=== PATIENT | male | born 1975 | race Caucasian/White ===

== ENCOUNTER → 2024-01-31 11:05 | Outpatient (CLI) | payer OTHER, SELFPAY ==
[2024-01-31 20:48] LABS: Alanine Aminotransferase 39 IU/L (<50); Albumin Globulin Ratio 1.3 (1.0-2.8); Alkaline Phosphatase 58 U/L (38-126); Aspartate Aminotransferase 64 IU/L (17-59); BUN Creatinine Ratio 16.7 (6-22); Bilirubin Total 1.1 mg/dL (0.2-1.3); Blood Urea Nitrogen 17 mg/dL (9-20); Calcium 9.2 mg/dL (8.4-10.2); Carbon Dioxide 26 mmol/L (22-32); Chloride 108 mmol/L (98-107); Cholesterol 197 mg/dL (140-199); Estimated Glomerular Filt Rate > 60 mL/min (>60); Glucose 93 mg/dL (70-100); HDL Cholesterol 42 mg/dL (40-60); HEMOLYSIS 33 (0-50); LDL Cholesterol Calculated 140 mg/dL (<100); Sodium 139 mmol/L (137-145); Triglycerides 75 mg/dL (35-150)
[2024-01-31 20:51] LABS: Hematocrit 44.8 % (41-53); Hemoglobin 15.3 g/dL (13.5-17.5); Mean Corpuscular HGB Conc 34.1 % (30-36); Mean Corpuscular Hemoglobin 31.7 PG (26-34); Mean Corpuscular Volume 93.1 fL (80-100); Platelet Count 268 X10^3/uL (150-400); Red Blood Cell Count 4.81 X10^6/uL (4.5-5.9); Red Cell Distribution Width 12.9 % (11.6-14.8); White Blood Cell Count 6.5 X10^3/uL (4.5-11.0)
[2024-01-31 21:01] LABS: Add Manual Diff / Slide Review YES
[2024-01-31 21:50] LABS: Neutrophils Absolute Manual 3575 /uL (3000-5900); Smudge Cells 1+; Total Cells Counted 100
[2024-01-31 21:51] LABS: Schistocytes 1+; Tear Drop Cells 1+
[2024-01-31 23:40] LABS: Hep C Virus Ab w/Reflex Quant NEGATIVE s/c (NEGATIVE)
[2024-02-05 10:14] LABS: Fecal Immunochemical Test Negative (Negative)
== END ==
PROVIDERS: PCP Physician Assistant; Visit Provider Physician Assistant
DX: Z13.6 Encounter for screening for cardiovascular disorders (principal); Z12.5 Encounter for screening for malignant neoplasm of prostate; K21.00 Gastro-esophageal reflux disease with esophagitis, without bleeding; R12 Heartburn; R10.9 Unspecified abdominal pain; R35.0 Frequency of micturition
CPT/HCPCS: 80053; 80061; 82274; 85007; 85025; 86803; G0103

== ENCOUNTER → 2024-03-25 11:00 | Outpatient (CLI) | payer OTHER, SELFPAY ==
--- NOTE | 2024-03-25 | DI.MRI.S_ITS ---
PROCEDURE: MR SHOULDER RT WO CON INDICATIONS: ROTATOR CUFF SYNDROME RIGHT TECHNIQUE: Noncontrast oblique coronal T2 fast spin echo with fat saturation, oblique sagittal T1 spin echo and T2 fast spin echo with fat saturation, axial T1 spin echo and T2 fast spin echo with fat saturation through the shoulder. COMPARISON: None. FINDINGS: Image quality: Excellent. Rotator cuff: Low-grade bursal surface partial-thickness tear involving distal supraspinatus at its insertion on the humeral head is seen extending to musculotendinous junction. Distal infraspinatus and subscapularis tendons are intact. No full-thickness rotator cuff tendon rupture. Sagittal images demonstrate no significant rotator cuff muscle atrophy. Bones and bursae: No bone marrow contusions or fractures. [id number] acromioclavicular joint osteoarthritic changes are seen with downward osteophyte formation depressing the musculotendinous junction of supraspinatus. Small amount of joint fluid and subacromial subdeltoid bursal fluid is seen, no loose bodies. Capsule and soft tissues: Labrum is grossly intact. The long head of the biceps tendon demonstrates normal location and morphology. The rotator interval appears normal, without fibrosis. The coracohumeral ligament is normal in thickness. IMPRESSION: 1. Low-grade bursal surface partial-thickness tear involving distal supraspinatus extending to musculotendinous junction. No full-thickness rotator cuff tendon rupture. 2. Mild acromioclavicular joint osteoarthritis. No marrow edema. No fracture or dislocation. No loose bodies. 3. No gross focal labral tear. Dictated by: Manuel Mathew M.D. on 03/25/2024 at 16:38 Approved by: Manuel Mathew M.D. on 03/25/2024 at 16:41
== END ==
PROVIDERS: PCP Physician Assistant; Referring Provider Orthopaedic Surgery; Visit Provider Orthopaedic Surgery
DX: M75.111 Incomplete rotator cuff tear or rupture of right shoulder, not specified as traumatic (principal); M19.011 Primary osteoarthritis, right shoulder
CPT/HCPCS: 73221

== ENCOUNTER → 2024-09-11 08:59 | Outpatient (CLI) | payer OTHER, SELFPAY ==
--- NOTE | 2024-09-11 09:03 | DI.CT.S_ITS ---
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 5 mm coronal and sagittal reformats were performed, with additional 7 mm MIP reformats through the lungs. For radiation dose reduction, the following was used: automated exposure control, adjustment of mA and/or kV according to patient size. COMPARISON: None. FINDINGS: Image quality: Excellent. CHEST: Lungs and Pleura: Central and peripheral airways are normal without bronchial wall thickening or bronchiectasis. No ground-glass opacities, consolidations, or suspicious nodules. No pleural effusions or pleural calcification. Lower Neck: No enlarged lymph nodes. Thyroid: Normal CT appearance. Axillae: No enlarged lymph nodes. Chest Wall: No suspicious chest wall mass. Bones: No suspicious bone lesions. Mild degenerative changes in the thoracic spine. Heart: Heart size is normal. No pericardial effusion. Thoracic Vessels: The aorta and pulmonary arteries demonstrate normal size. Mediastinum and Jeannine: Several borderline mediastinal lymph nodes, a few in the subcarinal and right hilar region demonstrates coarse punctate calcification. No bulky noncalcified lymphadenopathy. Esophagus: No wall thickening. No hiatal hernia. ABDOMEN: Liver: No solid mass. A few punctate hypodensities too small to characterize are present near the liver dome. Gallbladder: No wall thickening or calcified stones. Biliary ducts: No biliary dilation. Pancreas: Normal size and morphology without visible ductal dilatation or inflammation. Spleen: Size is within normal limits. Adrenal Glands: No adrenal nodules. Kidneys and Ureters: Symmetric enhancement. No nephrolithiasis or hydronephrosis. No hydroureter. Stomach and Bowel: Stomach and small bowel loops are normal caliber. Normal appendix. Normal CT appearance of the colon. Patient's known primary colon malignancy is not seen on this exam. Peritoneum: No abnormal intraperitoneal fluid. No free air. Ventral Wall: No significant ventral hernia. Abdominal Nodes: No retroperitoneal or mesenteric adenopathy by size criteria. Vessels: The abdominal aorta, IVC, and portal vein are of normal caliber. PELVIS: Pelvic Organs: Unremarkable. Bladder: No stones or wall thickening. Pelvic Nodes: No enlarged lymph nodes. Miscellaneous: No inguinal hernias are seen. Bones: No aggressive osseous abnormality. Partial ankylosis of the superior sacroiliac joints. IMPRESSION: No evidence of metastatic disease in the chest, abdomen, or pelvis. Partially calcified, nonenlarged mediastinal and right hilar lymph nodes consistent with remote granulomatous disease exposure. Known primary colon malignancy is not seen on this exam. Dictated by: Beinta Armas M.D. on 09/11/2024 at 22:41 Approved by: Benita Armas M.D. on 09/11/2024 at 22:50
== END ==
PROVIDERS: PCP Physician Assistant; Referring Provider Colon & Rectal Surgery; Visit Provider Colon & Rectal Surgery
DX: C18.7 Malignant neoplasm of sigmoid colon (principal)
CPT/HCPCS: 71260; 74177; Q9967

== ENCOUNTER → 2024-09-16 10:21 | Outpatient (CLI) | payer OTHER, SELFPAY ==
[2024-09-16 12:02] LABS: Add Manual Diff / Slide Review NO; Basophils Absolute Auto 0 /uL (0-100); Basophils Percent Auto 0.4 % (0-2); Eosinophils Absolute Auto 100 /uL (0-450); Eosinophils Percent Auto 1.9 % (2-4); Hematocrit 45.4 % (41-53); Hemoglobin 15.5 g/dL (13.5-17.5); Lymphocytes Absolute Auto 1900 /uL (1100-4500); Lymphocytes Percent Auto 27.4 % (25-40); Mean Corpuscular HGB Conc 34.2 % (30-36); Mean Corpuscular Hemoglobin 31.6 PG (26-34); Mean Corpuscular Volume 92.3 fL (80-100); Monocytes Absolute Auto 500 /uL (0-900); Monocytes Percent Auto 7.5 % (3-14); Neutrophils Absolute Auto 4300 /uL (1500-7000); Neutrophils Percent Auto 62.8 % (50-75); Platelet Count 243 X10^3/uL (150-400); Red Blood Cell Count 4.92 X10^6/uL (4.5-5.9); Red Cell Distribution Width 12.9 % (11.6-14.8); White Blood Cell Count 6.8 X10^3/uL (4.5-11.0)
[2024-09-16 12:59] LABS: Carcinoembryonic Antigen 0.5 ng/mL (0.1-3.0)
== END ==
LOC: LAB 10:25
PROVIDERS: PCP Physician Assistant; Referring Provider Colon & Rectal Surgery; Visit Provider Colon & Rectal Surgery
DX: C18.9 Malignant neoplasm of colon, unspecified (principal); R79.89 Other specified abnormal findings of blood chemistry
CPT/HCPCS: 36415; 82378; 85025

== ENCOUNTER → 2025-02-05 09:57 | Outpatient (CLI) | payer OTHER, SELFPAY ==
[2025-02-05 19:24] LABS: Add Manual Diff / Slide Review NO; Basophils Absolute Auto 0 /uL (0-100); Basophils Percent Auto 0.3 % (0-2); Eosinophils Absolute Auto 300 /uL (0-450); Eosinophils Percent Auto 3.7 % (2-4); Hematocrit 46.4 % (41-53); Hemoglobin 15.8 g/dL (13.5-17.5); Lymphocytes Absolute Auto 1700 /uL (1100-4500); Mean Corpuscular Hemoglobin 30.6 PG (26-34); Mean Corpuscular Volume 90.1 fL (80-100); Monocytes Absolute Auto 600 /uL (0-900); Monocytes Percent Auto 7.9 % (3-14); Neutrophils Absolute Auto 4800 /uL (1500-7000); Neutrophils Percent Auto 65.1 % (50-75); Platelet Count 253 X10^3/uL (150-400); Red Blood Cell Count 5.15 X10^6/uL (4.5-5.9); Red Cell Distribution Width 13.8 % (11.6-14.8); White Blood Cell Count 7.4 X10^3/uL (4.5-11.0)
[2025-02-05 19:34] LABS: Alanine Aminotransferase 49 IU/L (<50); Albumin 4.4 g/dL (3.5-5.0); Albumin Globulin Ratio 1.6 (1.0-2.8); Alkaline Phosphatase 56 U/L (38-126); Aspartate Aminotransferase 38 IU/L (17-59); BUN Creatinine Ratio 14.8 (6-22); Bilirubin Total 0.9 mg/dL (0.2-1.3); Blood Urea Nitrogen 16 mg/dL (9-20); Calcium 10.2 mg/dL (8.4-10.2); Carbon Dioxide 26 mmol/L (22-32); Chloride 105 mmol/L (98-107); Cholesterol 239 mg/dL (140-199); Estimated Glomerular Filt Rate > 60 mL/min (>60); Globulin 2.7 g/dL (1.7-4.1); Glucose 101 mg/dL (70-100); HDL Cholesterol 50 mg/dL (40-60); HEMOLYSIS < 15 (0-50); LDL Cholesterol Calculated 175 mg/dL (<100); Potassium 4.8 mmol/L (3.4-5.1); Sodium 139 mmol/L (137-145); Total Protein 7.1 g/dL (6.3-8.2); Triglycerides 69 mg/dL (35-150)
[2025-02-05 20:04] LABS: TSH w/ Reflex to FT4 0.67 uIU/mL (0.47-4.68)
[2025-02-05 20:15] LABS: HIV 1 & 2 Ab/Ag 4th Gen Combo NEGATIVE (NEGATIVE)
== END ==
PROVIDERS: PCP Physician Assistant; Visit Provider Physician Assistant
DX: H90.3 Sensorineural hearing loss, bilateral (principal); R26.89 Other abnormalities of gait and mobility; R41.89 Other symptoms and signs involving cognitive functions and awareness; Z28.39 Other underimmunization status; Z13.6 Encounter for screening for cardiovascular disorders; Z11.4 Encounter for screening for human immunodeficiency virus [HIV]
CPT/HCPCS: 80053; 80061; 84443; 85025; 86735; 86762; 86765; 87389

== ENCOUNTER → 2025-07-30 07:30 | Outpatient (CLI) | payer OTHER, SELFPAY | PROVIDERS: PCP Physician Assistant; Visit Provider Physician Assistant | DX: R19.7 Diarrhea, unspecified (principal) | CPT/HCPCS: 87045; 87177 ==

== ENCOUNTER → 2025-08-03 08:57 | Outpatient (CLI) | payer OTHER, SELFPAY ==
[2025-08-03 18:43] LABS: Add Manual Diff / Slide Review NO; Hematocrit 44.4 % (41-53); Hemoglobin 15.6 g/dL (13.5-17.5); Lymphocytes Absolute Auto 1800 /uL (1100-4500); Mean Corpuscular HGB Conc 35.2 % (30-36); Mean Corpuscular Hemoglobin 32.0 PG (26-34); Mean Corpuscular Volume 91.0 fL (80-100); Platelet Count 252 X10^3/uL (150-400)
[2025-08-03 18:53] LABS: Alanine Aminotransferase 23 IU/L (<50); Albumin 4.4 g/dL (3.5-5.0); Albumin Globulin Ratio 1.7 (1.0-2.8); Alkaline Phosphatase 56 U/L (38-126); Blood Urea Nitrogen 16 mg/dL (9-20); Calcium 9.6 mg/dL (8.4-10.2); Carbon Dioxide 24 mmol/L (22-32); Chloride 106 mmol/L (98-107); Cholesterol 190 mg/dL (140-199); Estimated Glomerular Filt Rate > 60 mL/min (>60); Globulin 2.6 g/dL (1.7-4.1); Glucose 104 mg/dL (70-99); HDL Cholesterol 62 mg/dL (40-60); HEMOLYSIS 16 (0-50); Potassium 4.5 mmol/L (3.4-5.1); Sodium 138 mmol/L (137-145); Total Protein 7.0 g/dL (6.3-8.2); Triglycerides 58 mg/dL (35-150)
[2025-08-03 19:21] LABS: TSH w/ Reflex to FT4 0.90 uIU/mL (0.47-4.68)
== END ==
PROVIDERS: PCP Physician Assistant; Visit Provider Physician Assistant
DX: E78.00 Pure hypercholesterolemia, unspecified (principal); R19.7 Diarrhea, unspecified; F32.A Depression, unspecified; Z85.038 Personal history of other malignant neoplasm of large intestine; R10.9 Unspecified abdominal pain; R35.0 Frequency of micturition; Z12.5 Encounter for screening for malignant neoplasm of prostate
CPT/HCPCS: 80053; 80061; 84443; 85025; 85651; G0103

== ENCOUNTER → 2025-08-07 11:30 | Outpatient (CLI) | payer OTHER, SELFPAY ==
--- NOTE | 2025-08-07 11:31 | DI.CT.S_ITS ---
PROCEDURE: CT ABDOMEN PELVIS W CON INDICATIONS: Abdominal pain. Change in bowels. History colon cancer. TECHNIQUE: After the administration of intravenous contrast, axial sections acquired from the lung bases to the pubic symphysis. Coronal and sagittal reformats were performed. For radiation dose reduction, the following was used: automated exposure control, adjustment of mA and/or kV according to patient size. COMPARISON: None. FINDINGS: Image quality: Diagnostic. Lower Chest: No significant findings. ABDOMEN: Liver: No solid mass. Gallbladder: No radiopaque gallstones or wall thickening. Biliary ducts: No biliary dilation. Pancreas: No ductal dilation. Spleen: Size is within normal limits. Adrenal Glands: No adrenal nodules. Kidneys and Ureters: No hydronephrosis. No solid mass. No complex renal cystic lesion which requires follow up. Stomach and Bowel: Normal colonic caliber, without significant wall thickening. There is a colorectal anastomosis in the left lower quadrant. The patient has presumably undergone a prior sigmoidectomy. Peritoneum: No abnormal intraperitoneal fluid. No free air. Ventral Wall: No significant ventral hernia. Abdominal Nodes: No retroperitoneal or mesenteric adenopathy by size criteria. Vessels: Aorta and inferior vena cava are normal in size. PELVIS: Pelvic Organs: Unremarkable. Bladder: No bladder wall thickening, accounting for underdistention. Pelvic Nodes: No enlarged lymph nodes. Miscellaneous: No inguinal hernias are seen. Bones: No aggressive osseous abnormality. IMPRESSION: Prior sigmoidectomy with intact colorectal anastomosis. No evidence for recurrence or metastatic disease to the abdomen or pelvis. Dictated by: Varun Monterroso M.D. on 08/07/2025 at 15:40 Approved by: Varun Monterroso M.D. on 08/07/2025 at 15:46
== END ==
LOC: CT 11:31
PROVIDERS: PCP Physician Assistant; Referring Provider Physician Assistant; Visit Provider Physician Assistant
DX: R10.9 Unspecified abdominal pain (principal); R19.8 Other specified symptoms and signs involving the digestive system and abdomen; Z85.038 Personal history of other malignant neoplasm of large intestine; Z98.0 Intestinal bypass and anastomosis status
CPT/HCPCS: 74177; Q9967